=== PATIENT | male | born 1995 | race Two or more races ===

== ENCOUNTER 2025-06-10 15:39 | Emergency (ER) | payer MEDICAID, OTHER ==
[~2025-06-10] VITALS: Ht 175.3 cm; Wt 86.3 kg
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
[2025-06-10] MEDS ORDERED: IBUP1TAB5 PO (17:17)
[2025-06-10] MEDS ORDERED: METH-1181 PO (17:17)
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
[2025-06-10 17:28] VITALS: BP 138/74; PULSE 78; RESP 16; TEMP 98.4; O2SAT 96
== END 2025-06-10 17:30 | disposition home or self-care (01) ==
LOC: ER 15:39 → EDBD 15:39 → ER 17:30
DX: M25.511 Pain in right shoulder (principal); M54.2 Cervicalgia; V89.2XXA Person injured in unspecified motor-vehicle accident, traffic, initial encounter; Y93.I9 Activity, other involving external motion; Y92.488 Other paved roadways as the place of occurrence of the external cause; Y99.8 Other external cause status
CPT/HCPCS: 72040; 73030